=== PATIENT | male | born 1995 | race Caucasian/White ===

== ENCOUNTER → 2021-03-26 | Day surgery (SDC) | payer OTHER ==
[~2021-03-26] VITALS: Ht 190.5 cm; Wt 72.6 kg
[~2021-03-26] MED LIST: VENTOLIN HFA IN18 GM INH
[2021-03-26 09:13] LABS: HCT 46.2 % (42.0-52.0); HGB 15.9 g/dl (13.2-18.0); MCH 29.9 pg (25.0-31.0); MCHC 34.4 g/dL (32.0-36.0); RBC 5.31 M/uL (4.70-6.00); RDW 11.9 % (11.5-14.0)
[2021-03-26 09:23] LABS: ALBUMIN 4.4 g/dL (3.4-5.0); BILIRUBIN - TOTAL 0.7 mg/dL (0.2-1.0); CREATININE 0.94 mg/dL (0.67-1.17); GLOBULIN (CALCULATION) 2.8 g/dL; POTASSIUM 3.8 mmol/L (3.5-5.1); TOTAL PROTEIN 7.2 g/dL (6.4-8.2)
== END | disposition home or self-care (01) ==
LOC: FAS 08:00
PROVIDERS: Surgery
DX: K31.9 Disease of stomach and duodenum, unspecified (principal); Z90.49 Acquired absence of other specified parts of digestive tract; J45.909 Unspecified asthma, uncomplicated; K20.90 Esophagitis, unspecified without bleeding; K29.60 Other gastritis without bleeding; Z20.822 Contact with and (suspected) exposure to COVID-19
CPT/HCPCS: 36415; 80053; J2250; J2704; J7120; U0002